=== PATIENT | female | born 1965 | race Caucasian/White ===

== ENCOUNTER → 2023-08-08 15:00 | Outpatient (REF) | payer BC, SELFPAY | LOC: RAD 15:00 | PROVIDERS: ATTENDING PHYSICIAN Surgery Vascular Surgery; FAMILY PHYSICIAN Family Medicine | DX: I65.23 Occlusion and stenosis of bilateral carotid arteries (principal) | CPT/HCPCS: 93880 ==

== ENCOUNTER → 2024-05-09 10:32 | Outpatient (REF) | payer OTHER, SELFPAY ==
[2024-05-09 15:16] LABS: Rubella Positive
[2024-05-10 17:50] LABS: Hepatitis B Surface Antibody Positive
[2024-05-12 01:09] LABS: Quantiferon Mitogen minus NIL 9.95 IU/mL; Quantiferon NIL 0.05 IU/mL; Quantiferon Plus TB1 minus NIL 0.04 IU/mL (<=0.34); Quantiferon Plus TB2 minus NIL 0.01 IU/mL (<=0.34); Quantiferon TB Gold Plus Negative (Negative)
== END ==
LOC: OHS 10:32
PROVIDERS: ATTENDING PHYSICIAN Nurse Practitioner Family
DX: Z23 Encounter for immunization (principal)
CPT/HCPCS: 36415; 86480; 86706; 86735; 86762; 86765; 86787